=== PATIENT | male | born 1970 | race Two or more races ===

== ENCOUNTER 2017-10-14 21:08 | Emergency (ER) | payer OTHER ==
[~2017-10-14] VITALS: Ht 170.2 cm; Wt 76.7 kg
[2017-10-14 22:58] VITALS: BP 131/85
== END 2017-10-14 22:59 | disposition home or self-care (01) ==
LOC: ER 21:12
DX: K64.9 Unspecified hemorrhoids (principal); E78.00 Pure hypercholesterolemia, unspecified; Z98.890 Other specified postprocedural states
CPT/HCPCS: 99282; A4606; Z7610

== ENCOUNTER 2020-05-26 16:29 | Emergency (ER) | payer OTHER ==
[~2020-05-26] VITALS: Ht 170.2 cm; Wt 75.3 kg
--- NOTE | 2020-05-26 16:50 | NUR ---
AAOx3, came to ER c/o ON/OFF blood in the stool x 6 months. RR is even and unlabored with NAD noted. Skin is warm and dry. Place on hospital gown. Awaiting md for eval.
[2020-05-26 17:08] LABS: BASOPHILS % (AUTO) 0.5 % (0.0-2.0); HEMATOCRIT 46 % (39-51); HEMOGLOBIN 15.2 g/dL (13.5-17.5); LYMPHOCYTES # (AUTO) 3.4 /CMM (0.8-4.8); LYMPHOCYTES % (AUTO) 37.9 % (20.0-44.0); MEAN CORPUSCULAR HGB CONC 34 g/dl (31.0-36.0); MEAN CORPUSCULAR VOLUME 87 fL (80-96); MONOCYTES # (AUTO) 0.8 /CMM (0.1-1.30); MONOCYTES % (AUTO) 8.6 % (2.0-12.0); NEUTROPHILS # (AUTO) 4.6 /CMM (1.8-8.9); PLATELET COUNT (AUTO) 256 /CMM (150-450); RED BLOOD CELL COUNT(AUTO) 5.23 MIL/uL (4.5-6.0); WHITE BLOOD COUNT (AUTO) 8.9 K/uL (4.3-11.0)
[2020-05-26 17:17] LABS: CALCIUM, SERUM 8.5 mg/dL (8.5-10.1); POTASSIUM 3.7 mmol/L (3.5-5.1)
--- NOTE | 2020-05-26 17:56 | NUR ---
Patient discharged to home in stable condition. Written and verbal after care instructions given. Patient verbalizes understanding of instruction.
[2020-05-26 17:57] VITALS: BP 128/78
== END 2020-05-26 17:59 | disposition home or self-care (01) ==
LOC: ER 16:33
DX: K64.4 Residual hemorrhoidal skin tags (principal); E78.5 Hyperlipidemia, unspecified; E78.00 Pure hypercholesterolemia, unspecified; Z98.890 Other specified postprocedural states
CPT/HCPCS: 36415; 80048-TC; 85025-TC

== ENCOUNTER 2020-06-17 00:55 | Emergency (ER) | payer OTHER ==
[~2020-06-17] VITALS: Ht 170.2 cm; Wt 75.3 kg
[2020-06-17 01:17] VITALS: BP 134/85
--- NOTE | 2020-06-17 01:18 | NUR ---
PT AAOX4. BIBSELF C/O L FOOT PAIN S/P DANCING AND HEARD A POP. NO ACUTE DISTRESS NOTED. VSS. AWAITING MD FOR EVAL AND ORDERS.
--- NOTE | 2020-06-17 01:26 | NUR ---
XRAY AT BEDSIDE
--- NOTE | 2020-06-17 01:26 | NUR ---
DR DAMON AT BEDSIDE
--- NOTE | 2020-06-17 01:46 | NUR ---
Patient discharged to home in stable condition. Written and verbal after care instructions given. Patient verbalizes understanding of instruction.
== END 2020-06-17 01:53 | disposition home or self-care (01) ==
LOC: ER 00:56
DX: S92.355A Nondisplaced fracture of fifth metatarsal bone, left foot, initial encounter for closed fracture (principal); E78.00 Pure hypercholesterolemia, unspecified; Z98.890 Other specified postprocedural states; X58.XXXA Exposure to other specified factors, initial encounter; Y93.41 Activity, dancing; Y92.89 Other specified places as the place of occurrence of the external cause; Y99.8 Other external cause status
CPT/HCPCS: 73630-TC